=== PATIENT | male | born 1975 | race Caucasian/White ===

== ENCOUNTER 2017-07-01 15:17 | Emergency (ER) | payer BC ==
[2017-07-01] MEDS ORDERED: Lidocaine 1% with EPINEPHrine 1:100,000 50 ML MDV INFILT ONE (15:38)
[2017-07-01] MEDS ORDERED: Bacitracin Oint 1 GM U/D Packet TOP ONE (15:38)
--- NOTE | 2017-07-01 15:43 | EDM.PDOC ---
ED HPI GENERAL MEDICAL PROBLEM - General Chief Complaint: Laceration Stated Complaint: FELL, LACERATION TO LT KNEE BY CHAINSAW Time Seen by Provider: 07/01/17 15:39 Source of Information: Reports: Patient History Limitations: Reports: No Limitations - History of Present Illness INITIAL COMMENTS - FREE TEXT/NARRATIVE: Erasmo presents today with complaints of falling onto his chainsaw with his left knee. Chain saw was not running and he developed a laceration to the left knee. He denies other trauma or severe pain. Last tetanus 2011. Location: Reports: Lower Extremity, Left Quality: Reports: Dull Severity: Mild Improves with: Reports: Rest Worsens with: Reports: Movement Left Knee Pain Score (Numeric/FACES): 2 - Related Data Allergies Allergy/AdvReac Type Severity Reaction Status Date / Time No Known Allergies Allergy Verified 07/01/17 15:29 Home Meds: Home Meds Lisinopril [Lisinopril] 20 mg PO DAILY 12/01/13 [History] traZODone 50 mg PO BEDTIME 12/01/13 [History] Carisoprodol [Soma] 350 mg PO QID 08/19/14 [History] Baclofen [Baclofen] 10 mg PO Q12H 09/12/15 [History] Diazepam [Valium] 5 mg PO BEDTIME 01/18/16 [History] Terbinafine [LamISIL] 1 tab PO DAILY 07/01/17 [History] Past Medical History Cardiovascular History: Reports: Hypertension Gastrointestinal History: Reports: GERD, Inflammatory Bowel Disease Musculoskeletal History: Reports: Fracture Other Musculoskeletal History: Distonia Neurological History: Reports: Other (See Below) 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 Psychiatric History: Reports: Anxiety - Infectious Disease History Infectious Disease History: Reports: Chicken Pox - Past Surgical History Musculoskeletal Surgical History: Reports: Shoulder Surgery, Other (See Below) Other Musculoskeletal Surgeries/Procedures:: rotator x 2 on left and x2 on right. bicep rupture repair. Social & Family History - Tobacco Use Smoking Status *Q: Never Smoker Years of Tobacco use: 20 Second Hand Smoke Exposure: No - Caffeine Use Caffeine Use: Reports: Coffee - Alcohol Use Days Per Week of Alcohol Use: 3 Number of Drinks Per Day: 2 Total Drinks Per Week: 6 - Recreational Drug Use Recreational Drug Use: No ED ROS GENERAL - Review of Systems Review Of Systems: See Below Constitutional: Denies: Fever, Chills, Malaise, Weakness Cardiovascular: Denies: Chest Pain, Dyspnea on Exertion, Lightheadedness, Palpitations, PND, Syncope GI/Abdominal: Denies: Nausea, Vomiting Musculoskeletal: Reports: Leg Pain, Other (laceration to left knee) Skin: Reports: Wound, Other (Laceration to left knee) Neurological: Denies: Numbness, Tingling, Difficulty Walking, Weakness, Gait Disturbance Psychiatric: Reports: No Symptoms Hematologic/Lymphatic: Reports: No Symptoms Immunologic: Reports: No Symptoms ED EXAM, SKIN/RASH Exam: See Below Text/Narrative:: Erasmo is an alert, oriented and pleasant 42 year old male presenting today for laceration to left knee from falling on [employer] chain while it was not running. He denies numbness, tingling. He has full sensation, ROM intact to left leg. Bleeding controlled. Exam Limited By: No Limitations General Appearance: Alert, WD/WN, No Apparent Distress Eye Exam: Bilateral Eye: EOMI, PERRL Head: Atraumatic, Normocephalic Neck: Normal Inspection, Supple, Non-Tender, Full Range of Motion. No: Lymphadenopathy (R), Lymphadenopathy (L) Respiratory/Chest: No Respiratory Distress, Lungs Clear, Normal Breath Sounds, No Accessory Muscle Use, Chest Non-Tender Cardiovascular: Normal Peripheral Pulses, Regular Rate, Rhythm, No Edema, No Murmur, No Rub Peripheral Pulses: 2+: Dorsalis Pedis (L), Dorsalis Pedis (R) Back Exam: Normal Inspection, Full Range of Motion. No: CVA Tenderness (R), CVA Tenderness (L) Extremities: Normal Range of Motion, No Pedal Edema, Normal Capillary Refill, Other (Laceration to left kne) Neurological: Alert, Oriented, CN II-XII Intact, Normal Cognition, Normal Gait, Normal Reflexes, No Motor/Sensory Deficits Psychiatric: Normal Affect, Normal Mood Skin: Warm, Dry, Normal Color, No Rash, Other (Laceration to left knee 4cm in length, jagged. ) Lymphatic: No Adenopathy ED SKIN PROCEDURES - Laceration/Wound Repair Left Knee Lac/Wound length In cm: 4 Appearance: Irregular, Mildly Contaminated Distal NVT: Neuro & Vascular Intact, No Tendon Injury Anesthetic Type: Local Local Anesthesia - Lidocaine (Xylocaine): 1% with EPI Local Anesthetic Volume: 5cc Skin Prep: Chlorhexidine (Hibiciens), Saline Saline Irrigation (cc's): 30 Exploration/Debridement/Repair: Wound Explored, In a Bloodless Field, No Foreign Material Found, Wound Margins Revised Closed with: Sutures Suture Size: 3-0 # of Sutures: 7 Suture Type: Nylon, Interrupted Course - Vital Signs Last Recorded V/S: Last Vital Signs Temp 36.2 C 07/01/17 15:34 Pulse 84 07/01/17 15:34 Resp 18 07/01/17 15:34 BP 136/80 07/01/17 15:34 Pulse Ox 98 07/01/17 15:34 - Orders/Labs/Meds Meds: Medications Discontinued Medications Generic Name Dose Route Start Last Admin Trade Name Vladimir PRN Reason Stop Dose Admin Bacitracin 1 dose 07/01/17 15:38 07/01/17 15:44 Bacitracin Oint 1 Gm TOP 07/01/17 15:39 1 dose ONETIME ONE Administration Lidocaine/Epinephrine 6 ml 07/01/17 15:38 07/01/17 15:44 Xylocaine 1% With Epinephrine 1:100,000 INFILT 07/01/17 15:39 6 ml ONETIME ONE Administration - Re-Assessments/Exams Free Text/Narrative Re-Assessment/Exam: 07/01/17 16:20 Suture repair completed, bacitracin applied. Patient tolerated well. Departure - Departure Time of Disposition: 16:14 Disposition: Home, Self-Care 01 Condition: Good Clinical Impression: Laceration of left knee without complication - Discharge Information Instructions: Laceration Care, Adult, [id number], Stitches, [place], or Adhesive Wound Closure, [id number] Referrals: Dioni Ortega MD [Primary Care Provider] - Forms: ED Department Discharge Additional Instructions: You have suffered laceration to the left knee. Keep the area clean and dry. You can use bacitracin ointment, a thin layer twice per day for 3 days. Return to your primary provider or come back to the emergency room in 10 days for suture removal. Return for worsening, issues or concerns. - Assessment/Plan Assessment:: Laceration left knee without complications Plan: Laceration to the left knee. Keep the area clean and dry. You can use bacitracin ointment, a thin layer twice per day for 3 days. Acetaminophen or ibuprofen for pain as needed. Education provided on wound care, and physical activity. Patient questions answered. He is in agreement with plan. Return to your primary provider or come back to the emergency room in 10 days for suture removal. Return for worsening, issues or concerns.
[2017-07-01 15:54] VITALS: BP 136/80
== END 2017-07-01 16:23 | disposition home or self-care (01) ==
LOC: JP.ED 15:17
DX: S81.012A Laceration without foreign body, left knee, initial encounter (principal); W01.198A Fall on same level from slipping, tripping and stumbling with subsequent striking against other object, initial encounter; I10 Essential (primary) hypertension
CPT/HCPCS: 12002; 99283-25

== ENCOUNTER 2018-10-28 15:53 | Emergency (ER) | payer BC, OTHER ==
[2018-10-28] MEDS ORDERED: Aspirin 81 MG Tab.Chew PO ONE (16:04)
--- NOTE | 2018-10-28 16:07 | EDM.PDOC ---
ED HPI GENERAL MEDICAL PROBLEM - General Chief Complaint: Chest Pain Stated Complaint: CHEST PAINS Time Seen by Provider: 10/28/18 16:07 Source of Information: Reports: Patient, Old Records, Provider, RN History Limitations: Reports: No Limitations - History of Present Illness INITIAL COMMENTS - FREE TEXT/NARRATIVE: 43 yo male was seen in the clinic for chest pain today. An EKG there was normal , but they wanted him evaluated in the ER. Has no hx of CAD. Sx's present since this morning. Not worse with activity or eating. No calf pain or pleuritic chest pain. No hx of the same. Is under a lot of stress at work lately. No FHx of CAD. Is a non-smoker. No DM or hx of HTN. Lipids somewhat elevated, but not on treatment. Onset: Today Onset Date: 10/28/18 Onset Time: 09:00 Duration: Hour(s):, Constant Location: Reports: Chest Quality: Reports: Pressure Severity: Mild Improves with: Reports: None Worsens with: Reports: None Context: Reports: Other (See HPI) Associated Symptoms: Reports: Chest Pain, Shortness of Breath (Feels hard to breath). 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 (see below) (none) Chest Pain Score (Numeric/FACES): 0 Lower Jaw Pain Score (Numeric/FACES): 1 Left Shoulder Pain Score (Numeric/FACES): 1 - Related Data Allergies Allergy/AdvReac Type Severity Reaction Status Date / Time No Known Allergies Allergy Verified 10/28/18 16:01 Home Meds: Home Meds Lisinopril 20 mg PO DAILY 12/01/13 [History] traZODone 50 mg PO BEDTIME 12/01/13 [History] Carisoprodol [Soma] 350 mg PO QID 08/19/14 [History] Baclofen 10 mg PO Q12H 09/12/15 [History] Diazepam [Valium] 5 mg PO BEDTIME 01/18/16 [History] Past Medical History Cardiovascular History: Reports: Hypertension Gastrointestinal History: Reports: GERD, Inflammatory Bowel Disease Musculoskeletal History: Reports: Fracture Other Musculoskeletal History: Distonia Neurological History: Reports: Other (See Below) 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 Psychiatric History: Reports: Anxiety - Infectious Disease History Infectious Disease History: Reports: Chicken Pox - Past Surgical History Musculoskeletal Surgical History: Reports: Shoulder Surgery, Other (See Below) Other Musculoskeletal Surgeries/Procedures:: rotator x 2 on left and x2 on right. bicep rupture repair. Social & Family History - Caffeine Use Caffeine Use: Reports: Coffee ED ROS GENERAL - Review of Systems Review Of Systems: See Below Constitutional: Reports: No Symptoms HEENT: Reports: No Symptoms Respiratory: Reports: Shortness of Breath (very mild). Denies: Wheezing, Pleuritic Chest Pain, Cough, Sputum, Hemoptysis Cardiovascular: Reports: Chest Pain. Denies: Dyspnea on Exertion, Edema, Lightheadedness, Orthopnea, Palpitations, PND, Syncope Endocrine: Reports: No Symptoms GI/Abdominal: Reports: Anorexia. Denies: Abdominal Pain, Black Stool, Bloody Stool, Constipation, Diarrhea, Distension, Flatus, Hematemesis, Hematochezia, Nausea, Vomiting : Reports: No Symptoms Musculoskeletal: Reports: No Symptoms Skin: Reports: No Symptoms Neurological: Reports: No Symptoms ED EXAM, GENERAL - Physical Exam Exam: See Below Exam Limited By: No Limitations General Appearance: Alert, WD/WN, No Apparent Distress Eye Exam: Bilateral Eye: Normal Inspection Ears: Normal External Exam, Normal Canal, Hearing Grossly Normal, Normal TMs Ear Exam: Bilateral Ear: Auricle Normal, Canal Normal, TM normal Nose: Normal Inspection, No Blood Throat/Mouth: Normal Inspection, Normal Lips, Normal Oropharynx, Normal Voice, No Airway Compromise Head: Atraumatic, Normocephalic Neck: Normal Inspection Respiratory/Chest: No Respiratory Distress, Lungs Clear, Normal Breath Sounds, No Accessory Muscle Use, Chest Non-Tender Cardiovascular: Regular Rate, Rhythm, No Edema GI/Abdominal: Normal Bowel Sounds, Soft, Non-Tender, No Distention Back Exam: Normal Inspection. No: CVA Tenderness (R), CVA Tenderness (L) Extremities: Normal Inspection, Normal Range of Motion, Non-Tender, No Pedal Edema Neurological: Alert, Oriented, CN II-XII Intact, Normal Cognition, No Motor/ Sensory Deficits Psychiatric: Normal Affect, Normal Mood Skin Exam: Warm, Dry, Intact, Normal Color, No Rash EKG INTERPRETATION EKG Date: 10/28/18 Time: 15:45 Rhythm: NSR Rate (Beats/Min): 75 Norman: Normal P-Wave: Present QRS: Normal ST-T: Normal QT: Normal Comparison: NA - No Prior EKG Course - Vital Signs Last Recorded V/S: Last Vital Signs Temp 36.4 C 10/28/18 16:03 Pulse 65 10/28/18 17:44 Resp 16 10/28/18 17:19 BP 129/73 10/28/18 17:44 Pulse Ox 98 10/28/18 17:44 - Orders/Labs/Meds Orders: Active Orders 24 hr Category Date Time Status Cardiac Monitoring [RC] .As Directed Care 10/28/18 15:54 Active Nitroglycerin [Nitrostat] Med 10/28/18 16:14 Active 0.4 mg SL Q5M PRN Medication Orders Nitroglycerin (Nitrostat) 0.4 mg SL Q5M PRN PRN Reason: Chest Pain Last Admin: 10/28/18 16:34 Dose: 0.4 mg Admin: 10/28/18 16:18 Dose: 0.4 mg Labs: Laboratory Tests 10/28/18 10/28/18 10/28/18 Range/Units 16:14 16:14 17:15 WBC 7.4 (4.5-11.0) K/uL RBC 4.99 (4.30-5.90) M/uL Hgb 14.5 (12.0-15.0) g/dL Hct 44.1 (40.0-54.0) % MCV 88 (80-98) fL MCH 29 (27-31) pg MCHC 33 (32-36) % Plt Count 313 (150-400) K/uL D-Dimer, Quantitative < 100 (0.0-400.0) ng/mL Sodium 139 L (140-148) mmol/L Potassium 3.6 (3.6-5.2) mmol/L Chloride 102 (100-108) mmol/L Carbon Dioxide 24 (21-32) mmol/L Anion Gap 16.6 H (5.0-14.0) mmol/L BUN 13 (7-18) mg/dL Creatinine 1.1 (0.8-1.3) mg/dL Est Cr Clr Drug Dosing 93.08 mL/min Estimated GFR (MDRD) > 60 (>60) Glucose 93 (74-106) mg/dL Calcium 8.9 (8.5-10.1) mg/dL Troponin I < 0.017 (0.000-0.056) ng/mL Urine Color Urine Appearance Urine pH (4.5-8.0) Ur Specific Nicholson (1.008-1.030) Urine Protein (NEGATIVE) mg/dL Urine Glucose (UA) (NEGATIVE) mg/dL Urine Ketones (NEGATIVE) mg/dL Urine Occult Blood (NEGATIVE) Urine Nitrite (NEGAITVE) Urine Bilirubin (NEGATIVE) Urine Urobilinogen (NORMAL) mg/dL Ur Leukocyte Esterase (NEGATIVE) Urine RBC (0-5) Urine WBC (0-5) Ur Epithelial Cells Amorphous Sediment Urine Bacteria Urine Mucus Urine Other 10/28/18 10/28/18 Range/Units 17:48 18:41 WBC (4.5-11.0) K/uL RBC (4.30-5.90) M/uL Hgb (12.0-15.0) g/dL Hct (40.0-54.0) % MCV (80-98) fL MCH (27-31) pg MCHC (32-36) % Plt Count (150-400) K/uL D-Dimer, Quantitative (0.0-400.0) ng/mL Sodium (140-148) mmol/L Potassium (3.6-5.2) mmol/L Chloride (100-108) mmol/L Carbon Dioxide (21-32) mmol/L Anion Gap (5.0-14.0) mmol/L BUN (7-18) mg/dL Creatinine (0.8-1.3) mg/dL Est Cr Clr Drug Dosing mL/min Estimated GFR (MDRD) (>60) Glucose (74-106) mg/dL Calcium (8.5-10.1) mg/dL Troponin I < 0.017 (0.000-0.056) ng/mL Urine Color Yellow Urine Appearance Clear Urine pH 5.0 (4.5-8.0) Ur Specific Nicholson 1.015 (1.008-1.030) Urine Protein Negative (NEGATIVE) mg/dL Urine Glucose (UA) Normal (NEGATIVE) mg/dL Urine Ketones Negative (NEGATIVE) mg/dL Urine Occult Blood Negative (NEGATIVE) Urine Nitrite Negative (NEGAITVE) Urine Bilirubin Negative (NEGATIVE) Urine Urobilinogen Normal (NORMAL) mg/dL Ur Leukocyte Esterase Negative (NEGATIVE) Urine RBC 0-5 (0-5) Urine WBC 0-5 (0-5) Ur Epithelial Cells Few Amorphous Sediment Few Urine Bacteria Rare Urine Mucus Numerous Urine Other See note Meds: Medications Generic Name Dose Route Start Last Admin Trade Name Freq PRN Reason Stop Dose Admin Nitroglycerin 0.4 mg 10/28/18 16:14 10/28/18 16:34 Nitrostat SL 0.4 mg Q5M PRN Administration Chest Pain Discontinued Medications Generic Name Dose Route Start Last Admin Trade Name Freq PRN Reason Stop Dose Admin Acetaminophen 1,000 mg 10/28/18 18:05 10/28/18 18:24 Tylenol Extra Strength PO 10/28/18 18:06 1,000 mg ONETIME ONE Administration Aspirin 324 mg 10/28/18 16:04 10/28/18 16:17 Aspirin PO 10/28/18 16:05 324 mg ONETIME ONE Administration Al Hydroxide/Mg Hydroxide 15 0 ml 10/28/18 16:47 10/28/18 16:52 ml/ Lidocaine HCl 15 ml PO 10/28/18 16:48 15 ml ONETIME ONE Administration Departure - Departure Time of Disposition: 19:13 Disposition: Home, Self-Care 01 Condition: Fair Clinical Impression: Atypical chest pain Instructions: Exercise Stress Test, [id number], Nonspecific Chest Pain, Easy- to-Read Referrals: Dioni Ortega MD [Primary Care Provider] - Forms: ED Department Discharge Additional Instructions: Take a baby aspirin daily with food until your stress test, if you pass this test you can stop this med. Take acetaminophen up to 1000 mg every 6 hrs as needed. Continue your other medicines as currently. F/U with your provider a couple days after the stress test to go over the results. Return if worse. - My Orders Last 24 Hours: My Active Orders 10/28/18 15:54 Cardiac Monitoring [RC] .As Directed 10/28/18 16:14 Nitroglycerin [Nitrostat] 0.4 mg SL Q5M PRN - Assessment/Plan Last 24 Hours: My Active Orders 10/28/18 15:54 Cardiac Monitoring [RC] .As Directed 10/28/18 16:14 Nitroglycerin [Nitrostat] 0.4 mg SL Q5M PRN
[2018-10-28] MEDS: Nitroglycerin 0.4 MG Tab.SL SL PRN ×2 (16:18→16:34)
[2018-10-28] MEDS ORDERED: Alum Hydrox/Mag Hydrox/Simeth 15 ML, Lidocaine 2% 15 ML PO ONE ×2 (16:47)
[2018-10-28] MEDS ORDERED: Acetaminophen 500 MG Tab PO ONE (18:05)
[2018-10-28 19:29] VITALS: BP 121/77
== END 2018-10-28 19:47 | disposition home or self-care (01) ==
LOC: JP.ED 15:53
DX: R07.89 Other chest pain (principal); Z79.899 Other long term (current) drug therapy
CPT/HCPCS: 36415; 80048; 81001; 84484; 85027; 85379; 99285; A9270

== ENCOUNTER 2019-07-04 19:51 | Emergency (ER) | payer OTHER ==
[2019-07-04 20:14] VITALS: BP 138/79; PULSE 80
[2019-07-04] MEDS ORDERED: Colchicine 0.6 MG Tab PO ONE ×2 (21:04→21:07)
--- NOTE | 2019-07-04 21:12 | EDM.PDOC ---
ED HPI GENERAL MEDICAL PROBLEM - General Chief Complaint: General Stated Complaint: POSSILBE GOUT IN RIGHT TOE/CHEST PRESSURE Time Seen by Provider: 07/04/19 20:54 Source of Information: Reports: Patient, RN Notes Reviewed History Limitations: Reports: No Limitations - History of Present Illness INITIAL COMMENTS - FREE TEXT/NARRATIVE: 44-year-old gentleman presents emergency department today complaint of great toe pain on the right side he does have a history of gout he states this feels like gout but he recently had an angiogram 10 days prior does have some bruising around the groin area with some discomfort in the knee which she is not had with any gout attacks. Has been using indomethacin at home without relief Right Toe-Hailux Pain Score (Numeric/FACES): 5 - Related Data Allergies Allergy/AdvReac Type Severity Reaction Status Date / Time bee venom protein (honey bee) Allergy Anaphylactic Verified 07/04/19 20:22 Shock Home Meds: Home Meds traZODone 50 mg PO BEDTIME 12/01/13 [History] Carisoprodol [Soma] 350 mg PO QID 08/19/14 [History] Baclofen 10 mg PO Q12H 09/12/15 [History] Diazepam [Valium] 5 mg PO BEDTIME 01/18/16 [History] Aspirin [Halfprin] 81 mg PO DAILY 07/04/19 [History] Diltiazem [Diltiazem XR] 180 mg PO BEDTIME 07/04/19 [History] EPINEPHrine [Epipen] 0.3 mg IM ASDIRECTED PRN 07/04/19 [History] Indomethacin [Indocin] 50 mg PO ASDIRECTED PRN 07/04/19 [History] Isosorbide Mononitrate [Isosorbide Mononitrate ER] 30 mg PO DAILY 07/04/19 [ History] Nitroglycerin [Nitrostat] 0.4 mg SL ASDIRECTED PRN 07/04/19 [History] atorvaSTATin [Lipitor] 40 mg PO BEDTIME 07/04/19 [History] Past Medical History HEENT History: Reports: Allergic Rhinitis Cardiovascular History: Reports: Arrhythmia, CAD, High Cholesterol, Hypertension Gastrointestinal History: Reports: GERD, Inflammatory Bowel Disease Musculoskeletal History: Reports: Fracture, Gout Other Musculoskeletal History: Distonia Neurological History: Reports: Other (See Below) 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 Psychiatric History: Reports: Anxiety Dermatologic History: Reports: None, Other (See Below) Other Dermatologic History: rash on underarms - Infectious Disease History Infectious Disease History: Reports: Chicken Pox - Past Surgical History Head Surgeries/Procedures: Reports: None Cardiovascular Surgical History: Reports: Other (See Below) Other Cardiovascular Surgeries/Procedures: angiogram Respiratory Surgical History: Reports: None GI Surgical History: Reports: Colonoscopy Musculoskeletal Surgical History: Reports: Shoulder Surgery, Other (See Below) Other Musculoskeletal Surgeries/Procedures:: rotator x 2 on left and x2 on right. bicep rupture repair. Dermatological Surgical History: Reports: Skin Biopsy Social & Family History - Tobacco Use Smoking Status *Q: Never Smoker - Caffeine Use Caffeine Use: Reports: Coffee - Recreational Drug Use Recreational Drug Use: No ED ROS GENERAL - Review of Systems Review Of Systems: See Below Constitutional: Reports: No Symptoms Respiratory: Reports: No Symptoms Cardiovascular: Reports: No Symptoms Musculoskeletal: Reports: Foot Pain (Great toe right side) ED EXAM, GENERAL - Physical Exam Exam: See Below Free Text/Narrative:: Examination of the toe it is red and very tender to the touch this is the great toe on the right side, pedal pulse is +2 and unappreciated any significant pain in the knee he does have some bruising and ecchymosis appreciated in the groin area on the left side Exam Limited By: No Limitations General Appearance: Alert, WD/WN, No Apparent Distress Respiratory/Chest: No Respiratory Distress Course - Vital Signs Last Recorded V/S: Last Vital Signs Temp 98.2 F 07/04/19 20:30 Pulse 80 07/04/19 20:30 Resp 16 07/04/19 20:30 BP 138/79 07/04/19 20:30 Pulse Ox 97 07/04/19 20:30 - Orders/Labs/Meds Meds: Medications Discontinued Medications Generic Name Dose Route Start Last Admin Trade Name Freq PRN Reason Stop Dose Admin Colchicine 1.2 mg 07/04/19 21:04 Colcrys PO 07/04/19 21:05 ONETIME ONE Colchicine 0.6 mg 07/04/19 21:07 Colcrys PO 07/04/19 21:08 ONETIME ONE Departure - Departure Time of Disposition: 21:15 Disposition: Home, Self-Care 01 Condition: Fair Clinical Impression: Gout attack Qualifiers: Gout site: foot Gout etiology: other secondary cause Laterality: right Qualified Code(s): M10.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 - Assessment/Plan Plan: Assessment Acuity = acute Site and laterality = gout great toe right foot Etiology = probable uric acid Manifestations = none Location of injury = Home Lab values = none Plan Elected to treat empirically with colchicine did talk to him about the interaction of colchicine and diazepam he will not repeat his cold seen for 3 days,, he declined any further evaluation with blood work or imaging studies at this time follow-up primary care 3-5 days if no improvement This note was dictated using [employer] voice recognition software please call with any questions on syntax or grammar.
== END 2019-07-04 21:29 | disposition home or self-care (01) ==
LOC: JP.ED 19:51
DX: M10.471 Other secondary gout, right ankle and foot (principal); E78.5 Hyperlipidemia, unspecified; I10 Essential (primary) hypertension; F41.9 Anxiety disorder, unspecified; Z79.82 Long term (current) use of aspirin; Z91.030 Bee allergy status
CPT/HCPCS: 99283; A9270

== ENCOUNTER 2019-09-15 11:35 | Inpatient (IN) | payer OTHER ==
--- NOTE | 2019-09-15 11:53 | EDM.PDOC ---
ED HPI GENERAL MEDICAL PROBLEM - General Chief Complaint: Gastrointestinal Problem Stated Complaint: BLOOD LOSS THROUGH STOOLS Time Seen by Provider: 09/15/19 11:51 Source of Information: Reports: Patient History Limitations: Reports: No Limitations - History of Present Illness INITIAL COMMENTS - FREE TEXT/NARRATIVE: pt had 8-10 bloody stools this am. this was maroon in color. Onset: Today, Sudden Duration: Hour(s):, Other ( some discomfort in the left lower abdoman. ) Location: Reports: Abdomen Associated Symptoms: Reports: Other (diarrhea, dark blood) - Related Data Allergies Allergy/AdvReac Type Severity Reaction Status Date / Time bee venom protein (honey bee) Allergy Severe Anaphylactic Verified 09/15/19 11: 47 Shock Home Meds: Home Meds traZODone 50 mg PO BEDTIME 12/01/13 [History] carisoprodoL [Soma] 350 mg PO QID 08/19/14 [History] Baclofen 10 mg PO Q12H 09/12/15 [History] Diazepam [Valium] 5 mg PO BEDTIME 01/18/16 [History] Aspirin [Halfprin] 81 mg PO DAILY 07/04/19 [History] Diltiazem [Dilacor XR] 240 mg PO BEDTIME 07/04/19 [History] EPINEPHrine [Epipen] 0.3 mg IM ASDIRECTED PRN 07/04/19 [History] Indomethacin [Indocin] 50 mg PO ASDIRECTED PRN 07/04/19 [History] Isosorbide Mononitrate [Isosorbide Mononitrate ER] 30 mg PO DAILY 07/04/19 [ History] Nitroglycerin [Nitrostat] 0.4 mg SL ASDIRECTED PRN 07/04/19 [History] Rosuvastatin [Crestor] 20 mg PO BEDTIME 09/15/19 [History] Past Medical History HEENT History: Reports: Allergic Rhinitis Cardiovascular History: Reports: Arrhythmia, CAD, High Cholesterol, Hypertension Gastrointestinal History: Reports: GERD, Inflammatory Bowel Disease Musculoskeletal History: Reports: Fracture, Gout Other Musculoskeletal History: Distonia Neurological History: Reports: Other (See Below) 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 Psychiatric History: Reports: Anxiety Dermatologic History: Reports: None, Other (See Below) Other Dermatologic History: rash on underarms - Infectious Disease History Infectious Disease History: Reports: Chicken Pox - Past Surgical History Head Surgeries/Procedures: Reports: None Cardiovascular Surgical History: Reports: Other (See Below) Other Cardiovascular Surgeries/Procedures: angiogram Respiratory Surgical History: Reports: None GI Surgical History: Reports: Colonoscopy Musculoskeletal Surgical History: Reports: Shoulder Surgery, Other (See Below) Other Musculoskeletal Surgeries/Procedures:: rotator x 2 on left and x2 on right. bicep rupture repair. Dermatological Surgical History: Reports: Skin Biopsy Social & Family History - Caffeine Use Caffeine Use: Reports: Coffee ED ROS GENERAL - Review of Systems Review Of Systems: See Below Constitutional: Reports: No Symptoms HEENT: Reports: No Symptoms Respiratory: Reports: No Symptoms Cardiovascular: Reports: No Symptoms Endocrine: Reports: No Symptoms GI/Abdominal: Reports: Other (pt has had 8-10 maroon colored stools this am. He has had bleeding in the past but not this much. ) : Reports: No Symptoms Musculoskeletal: Reports: No Symptoms Skin: Reports: No Symptoms Neurological: Reports: No Symptoms Psychiatric: Reports: No Symptoms ED EXAM, GI/ABD - Physical Exam Exam: See Below Text/Narrative:: pt arrived with a history of 8-10 bloody stools today. He states he always has some bleeding but not this volume. Exam Limited By: No Limitations General Appearance: Alert, Anxious Ears: Normal TMs Nose: Normal Inspection Throat/Mouth: Normal Inspection Head: Atraumatic Neck: Normal Inspection Respiratory/Chest: No Respiratory Distress Cardiovascular: Regular Rate, Rhythm GI/Abdominal Exam: Soft, Non-Tender (Male) Exam: Deferred Rectal (Males) Exam: Other (there is a small amount of stool mixed with blood. ) Back Exam: Normal Inspection Extremities: Normal Inspection Neurological: Alert, Oriented, Normal Cognition Course - Vital Signs Last Recorded V/S: Last Vital Signs Temp 36.3 C 09/16/19 08:50 Pulse 71 09/16/19 09:30 Resp 18 09/16/19 09:30 BP 133/79 09/16/19 09:30 Pulse Ox 99 09/16/19 09:30 - Orders/Labs/Meds Labs: Laboratory Tests 09/15/19 09/15/19 09/15/19 Range/Units 11:52 11:52 12:35 WBC 7.9 (4.5-11.0) K/uL RBC 4.75 (4.30-5.90) M/uL Hgb 14.0 (12.0-15.0) g/dL Hct 43.7 (40.0-54.0) % MCV 92 (80-98) fL MCH 30 (27-31) pg MCHC 32 (32-36) % Plt Count 261 (150-400) K/uL Neut % (Auto) 56 (36-66) % Lymph % (Auto) 31 (24-44) % [place] % (Auto) 11 H (2-6) % Eos % (Auto) 2 (2-4) % Baso % (Auto) 1 (0-1) % APTT (27.0-36.0) sec Sodium 139 L (140-148) mmol/L Potassium 3.8 (3.6-5.2) mmol/L Chloride 104 (100-108) mmol/L Carbon Dioxide 25 (21-32) mmol/L Anion Gap 13.8 (5.0-14.0) mmol/L BUN 12 (7-18) mg/dL Creatinine 1.0 (0.8-1.3) mg/dL Est Cr Clr Drug Dosing 101.31 mL/min Estimated GFR (MDRD) > 60 (>60) Glucose 97 (74-106) mg/dL Calcium 8.6 (8.5-10.1) mg/dL Total Bilirubin 0.3 (0.2-1.0) mg/dL AST 20 (15-37) U/L ALT 36 (12-78) U/L Alkaline Phosphatase 53 (46-116) U/L Total Protein 7.0 (6.4-8.2) g/dL Albumin 3.9 (3.4-5.0) g/dL Globulin 3.1 (2.3-3.5) g/dL Albumin/Globulin Ratio 1.3 (1.2-2.2) Urine Color Yellow (YELLOW) Urine Appearance Clear (CLEAR) Urine pH 5.5 (5.0-8.0) Ur Specific [place] 1.015 (1.008-1.030) Urine Protein Negative (NEGATIVE) mg/dL Urine Glucose (UA) Negative (NEGATIVE) mg/dL Urine Ketones Negative (NEGATIVE) mg/dL Urine Occult Blood Negative (NEGATIVE) Urine Nitrite Negative (NEGATIVE) Urine Bilirubin Negative (NEGATIVE) Urine Urobilinogen 0.2 (0.2-1.0) EU/dL Ur Leukocyte Esterase Negative (NEGATIVE) Urine RBC Not seen (0-5) Urine WBC Not seen (0-5) Ur Epithelial Cells Not seen Amorphous Sediment Not seen Urine Bacteria Not seen Urine Mucus Not seen 09/15/19 Range/Units 12:59 WBC (4.5-11.0) K/uL RBC (4.30-5.90) M/uL Hgb (12.0-15.0) g/dL Hct (40.0-54.0) % MCV (80-98) fL MCH (27-31) pg MCHC (32-36) % Plt Count (150-400) K/uL Neut % (Auto) (36-66) % Lymph % (Auto) (24-44) % [place] % (Auto) (2-6) % Eos % (Auto) (2-4) % Baso % (Auto) (0-1) % APTT 24.0 L (27.0-36.0) sec Sodium (140-148) mmol/L Potassium (3.6-5.2) mmol/L Chloride (100-108) mmol/L Carbon Dioxide (21-32) mmol/L Anion Gap (5.0-14.0) mmol/L BUN (7-18) mg/dL Creatinine (0.8-1.3) mg/dL Est Cr Clr Drug Dosing mL/min Estimated GFR (MDRD) (>60) Glucose (74-106) mg/dL Calcium (8.5-10.1) mg/dL Total Bilirubin (0.2-1.0) mg/dL AST (15-37) U/L ALT (12-78) U/L Alkaline Phosphatase (46-116) U/L Total Protein (6.4-8.2) g/dL Albumin (3.4-5.0) g/dL Globulin (2.3-3.5) g/dL Albumin/Globulin Ratio (1.2-2.2) Urine Color (YELLOW) Urine Appearance (CLEAR) Urine pH (5.0-8.0) Ur Specific [place] (1.008-1.030) Urine Protein (NEGATIVE) mg/dL Urine Glucose (UA) (NEGATIVE) mg/dL Urine Ketones (NEGATIVE) mg/dL Urine Occult Blood (NEGATIVE) Urine Nitrite (NEGATIVE) Urine Bilirubin (NEGATIVE) Urine Urobilinogen (0.2-1.0) EU/dL Ur Leukocyte Esterase (NEGATIVE) Urine RBC (0-5) Urine WBC (0-5) Ur Epithelial Cells Amorphous Sediment Urine Bacteria Urine Mucus Meds: Medications Discontinued Medications Generic Name Dose Route Start Last Admin Trade Name Freq PRN Reason Stop Dose Admin Acetaminophen 650 mg 09/15/19 15:47 Tylenol PO Q4H PRN Pain (Mild 1-3)/fever Baclofen 10 mg 09/15/19 20:00 09/16/19 09:23 Lioresal PO 10 mg Q12H JOYCE Administration Bisacodyl 10 mg 09/15/19 16:00 09/15/19 16:59 Dulcolax PO 09/15/19 16:01 10 mg ONETIME ONE Administration Bisacodyl 10 mg 09/15/19 20:00 09/15/19 21:10 Dulcolax PO 09/15/19 20:01 10 mg ONETIME ONE Administration Cyclobenzaprine HCl 10 mg 09/15/19 21:00 09/16/19 09:23 Flexeril PO 10 mg TID JOYCE Administration Diazepam 5 mg 09/15/19 21:00 09/15/19 21:14 Valium. PO 5 mg BEDTIME JOYCE Administration Diltiazem HCl 240 mg 09/15/19 21:00 09/15/19 21:11 Cardizem Cd PO 240 mg BEDTIME JOYCE Administration Fentanyl Confirm 09/16/19 07:06 Sublimaze Administered 09/16/19 07:07 Dose 100 mcg .ROUTE .STK-MED ONE Sodium Chloride 1,000 mls @ 999 mls/hr 09/15/19 12:00 09/15/19 13:17 Normal Saline IV 999 mls/hr ASDIRECTED JOYCE Administration Sodium Chloride 80 mls @ 3.5 mls/sec 09/15/19 13:45 09/15/19 13:42 Normal Saline IV 3.5 mls/sec ASDIRECTED JOYCE Administration Sodium Chloride 1,000 mls @ 125 mls/hr 09/15/19 15:47 09/16/19 07:04 Normal Saline IV 125 mls/hr ASDIRECTED JOYCE Administration Influenza Virus Vaccine 60 mcg 09/17/19 10:00 Fluzone Quad [id number] Syringe IM 09/17/19 10:01 .ONCE ONE Iopamidol 132 ml 09/15/19 13:36 09/15/19 13:42 Isovue-300 (61%) IV 09/15/19 13:37 132 ml ASDIRECTED ONE Administration Isosorbide Mononitrate 30 mg 09/16/19 09:00 09/16/19 09:24 Imdur PO 30 mg DAILY JOYCE Administration Midazolam HCl Confirm 09/16/19 07:06 Versed 1 Mg/Ml Administered 09/16/19 07:07 Dose 2 mg .ROUTE .STK-MED ONE Ondansetron HCl 4 mg 09/15/19 15:47 Zofran IV Q4H PRN Nausea/Vomiting Oxycodone HCl 5 mg 09/15/19 15:47 Oxycodone PO Q4H PRN Pain (moderate 4-6) Pantoprazole Sodium 40 mg 09/15/19 16:30 09/16/19 05:24 Protonix Iv IV 40 mg Q12H JOYCE Administration Polyethylene Glycol 238 gm 09/15/19 17:00 09/15/19 17:46 Miralax PO 09/15/19 17:01 238 gm ONETIME ONE Administration Propofol Confirm 09/16/19 07:06 Diprivan 20 Ml Administered 09/16/19 07:07 Dose 200 mg .ROUTE .STK-MED ONE Rosuvastatin Calcium 20 mg 09/15/19 21:00 09/15/19 21:09 Crestor PO 20 mg BEDTIME JOYCE Administration Sodium Chloride 10 ml 09/15/19 15:47 Saline Flush FLUSH ASDIRECTED PRN Keep Vein Open Trazodone HCl 50 mg 09/15/19 21:00 09/15/19 21:11 Trazodone PO 50 mg BEDTIME JOYCE Administration - Re-Assessments/Exams Free Text/Narrative Re-Assessment/Exam: 09/20/19 11:25 pt did have a normal hg. He did have one stool that was almost all dark blood. Departure - Departure Time of Disposition: 16:25 Disposition: Admitted As Inpatient 64 Condition: Fair Clinical Impression: Lower GI bleeding - Discharge Information Sepsis Event Note - Evaluation Sepsis Screening Result: No Definite Risk - Focused Exam Date Exam was Performed: 09/20/19 Time Exam was Performed: 11:27
[2019-09-15] MEDS: Sodium Chloride 0.9% 1,000 ML IV SCH ×4 (12:17→23:17)
[2019-09-15] MEDS ORDERED: Iopamidol 612 MG/ML 200 ML Bottle IV ONE (13:36)
[2019-09-15] MEDS ORDERED: Sodium Chloride 0.9% 80 ML IV SCH (13:45)
--- NOTE | 2019-09-15 14:01 | PCM.HP.2 ---
H&P History of Present Illness - General Date of Service: 09/15/19 Admit Problem/Dx: Admission Diagnosis/Problem Admission Diagnosis/Problem Bleeding Source of Information: Patient, Provider, RN Notes Reviewed History Limitations: Reports: No Limitations - History of Present Illness Initial Comments - Free Text/Narative: Mr. Zimmerman is a 44-year-old gentleman who was admitted through the emergency department with hematochezia secondary to a lower GI bleed. He has had a history of intermittent lower GI bleeds with previous evaluation, no specific etiology identified. Recently he has had blood in the stool on almost a daily basis over the past several days. Today he had several bloody bowel movements and presented to the emergency department for further evaluation. Hemoglobin is 14 and he has been hemodynamically stable. The skin of the abdomen shows evidence of a stricture in the sigmoid colon, no evidence of mass. - Related Data Allergies/Adverse Reactions: Allergies Allergy/AdvReac Type Severity Reaction Status Date / Time bee venom protein (honey bee) Allergy Severe Anaphylactic Verified 09/15/19 11: 47 Shock Home Medications: Home Meds traZODone 50 mg PO BEDTIME 12/01/13 [History] carisoprodoL [Soma] 350 mg PO QID 08/19/14 [History] Baclofen 10 mg PO Q12H 09/12/15 [History] Diazepam [Valium] 5 mg PO BEDTIME 01/18/16 [History] Aspirin [Halfprin] 81 mg PO DAILY 07/04/19 [History] Diltiazem [Diltiazem XR] 240 mg PO BEDTIME 07/04/19 [History] EPINEPHrine [Epipen] 0.3 mg IM ASDIRECTED PRN 07/04/19 [History] Indomethacin [Indocin] 50 mg PO ASDIRECTED PRN 07/04/19 [History] Isosorbide Mononitrate [Isosorbide Mononitrate ER] 30 mg PO DAILY 07/04/19 [ History] Nitroglycerin [Nitrostat] 0.4 mg SL ASDIRECTED PRN 07/04/19 [History] Rosuvastatin [Crestor] 20 mg PO BEDTIME 09/15/19 [History] Past Medical History HEENT History: Reports: Allergic Rhinitis Cardiovascular History: Reports: Arrhythmia, CAD, High Cholesterol, Hypertension Gastrointestinal History: Reports: GERD, Inflammatory Bowel Disease Musculoskeletal History: Reports: Fracture, Gout Other Musculoskeletal History: Distonia Neurological History: Reports: Other (See Below) 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 Psychiatric History: Reports: Anxiety Dermatologic History: Reports: None, Other (See Below) Other Dermatologic History: rash on underarms - Infectious Disease History Infectious Disease History: Reports: Chicken Pox - Past Surgical History Head Surgeries/Procedures: Reports: None Cardiovascular Surgical History: Reports: Other (See Below) Other Cardiovascular Surgeries/Procedures: angiogram Respiratory Surgical History: Reports: None GI Surgical History: Reports: Colonoscopy Musculoskeletal Surgical History: Reports: Shoulder Surgery, Other (See Below) Other Musculoskeletal Surgeries/Procedures:: rotator x 2 on left and x2 on right. bicep rupture repair. Dermatological Surgical History: Reports: Skin Biopsy Social & Family History - Tobacco Use Smoking Status *Q: Never Smoker - Caffeine Use Caffeine Use: Reports: Coffee - Alcohol Use Days Per Week of Alcohol Use: 4 Number of Drinks Per Day: 2 Total Drinks Per Week: 8 Date of Last Drink: 09/13/19 - Recreational Drug Use Recreational Drug Use: No H&P Review of Systems - Review of Systems: Review Of Systems: See Below General: Reports: No Symptoms HEENT: Reports: No Symptoms Pulmonary: Reports: No Symptoms Cardiovascular: Reports: No Symptoms Gastrointestinal: Reports: Abdominal Pain, Diarrhea, Hematochezia. Denies: Constipation, Difficulty Swallowing, Distension, Hematemesis, Nausea, Vomiting Genitourinary: Reports: No Symptoms Musculoskeletal: Reports: No Symptoms Skin: Reports: No Symptoms Psychiatric: Reports: No Symptoms Neurological: Reports: No Symptoms Hematologic/Lymphatic: Reports: No Symptoms Immunologic: Reports: No Symptoms Exam - Exam Exam: See Below - Vital Signs Vital Signs: Last Vital Signs Temp 97 F 09/15/19 13:20 Pulse 62 09/15/19 13:20 Resp 16 09/15/19 13:20 BP 134/77 09/15/19 13:20 Pulse Ox 99 09/15/19 13:20 Weight: 193 lb 3.2 oz - Exam General: Alert, Oriented, Cooperative, Mild Distress HEENT: Conjunctiva Clear, Hearing Intact, Mucosa Moist & [place], Normal Nasal Septum, Posterior Pharynx Clear, Pupils Equal Neck: Supple, Trachea Midline, +2 Carotid Pulse wo Bruit Lungs: Clear to Auscultation Cardiovascular: Regular Rate, Regular Rhythm, Normal S1, Normal S2. No: Systolic Murmur, Diastolic Murmur GI/Abdominal Exam: Soft, Non-Tender, No Organomegaly, No Distention Back Exam: Normal Inspection, Full Range of Motion Extremities: Non-Tender, No Pedal Edema Skin: Warm, Dry, Intact Neurological: Cranial Nerves Intact, Strength Equal Bilateral, Normal Speech, Normal Tone, Sensation Intact. No: Focal Deficit Neuro Extensive - Mental Status: Alert, Oriented x3, Normal Mood/Affect, Normal Cognition, Memory Intact - Patient Data Lab Results Last 24 hrs: Laboratory Results - last 24 hr 09/15/19 09/15/19 09/15/19 Range/Units 11:52 11:52 12:35 WBC 7.9 (4.5-11.0) K/uL RBC 4.75 (4.30-5.90) M/uL Hgb 14.0 (12.0-15.0) g/dL Hct 43.7 (40.0-54.0) % MCV 92 (80-98) fL MCH 30 (27-31) pg MCHC 32 (32-36) % Plt Count 261 (150-400) K/uL Neut % (Auto) 56 (36-66) % Lymph % (Auto) 31 (24-44) % [place] % (Auto) 11 H (2-6) % Eos % (Auto) 2 (2-4) % Baso % (Auto) 1 (0-1) % APTT (27.0-36.0) sec Sodium 139 L (140-148) mmol/L Potassium 3.8 (3.6-5.2) mmol/L Chloride 104 (100-108) mmol/L Carbon Dioxide 25 (21-32) mmol/L Anion Gap 13.8 (5.0-14.0) mmol/L BUN 12 (7-18) mg/dL Creatinine 1.0 (0.8-1.3) mg/dL Est Cr Clr Drug Dosing 101.31 mL/min Estimated GFR (MDRD) > 60 (>60) Glucose 97 (74-106) mg/dL Calcium 8.6 (8.5-10.1) mg/dL Total Bilirubin 0.3 (0.2-1.0) mg/dL AST 20 (15-37) U/L ALT 36 (12-78) U/L Alkaline Phosphatase 53 (46-116) U/L Total Protein 7.0 (6.4-8.2) g/dL Albumin 3.9 (3.4-5.0) g/dL Globulin 3.1 (2.3-3.5) g/dL Albumin/Globulin Ratio 1.3 (1.2-2.2) Urine Color Yellow (YELLOW) Urine Appearance Clear (CLEAR) Urine pH 5.5 (5.0-8.0) Ur Specific [place] 1.015 (1.008-1.030) Urine Protein Negative (NEGATIVE) mg/dL Urine Glucose (UA) Negative (NEGATIVE) mg/dL Urine Ketones Negative (NEGATIVE) mg/dL Urine Occult Blood Negative (NEGATIVE) Urine Nitrite Negative (NEGATIVE) Urine Bilirubin Negative (NEGATIVE) Urine Urobilinogen 0.2 (0.2-1.0) EU/dL Ur Leukocyte Esterase Negative (NEGATIVE) Urine RBC Not seen (0-5) Urine WBC Not seen (0-5) Ur Epithelial Cells Not seen Amorphous Sediment Not seen Urine Bacteria Not seen Urine Mucus Not seen 09/15/19 Range/Units 12:59 WBC (4.5-11.0) K/uL RBC (4.30-5.90) M/uL Hgb (12.0-15.0) g/dL Hct (40.0-54.0) % MCV (80-98) fL MCH (27-31) pg MCHC (32-36) % Plt Count (150-400) K/uL Neut % (Auto) (36-66) % Lymph % (Auto) (24-44) % [place] % (Auto) (2-6) % Eos % (Auto) (2-4) % Baso % (Auto) (0-1) % APTT 24.0 L (27.0-36.0) sec Sodium (140-148) mmol/L Potassium (3.6-5.2) mmol/L Chloride (100-108) mmol/L Carbon Dioxide (21-32) mmol/L Anion Gap (5.0-14.0) mmol/L BUN (7-18) mg/dL Creatinine (0.8-1.3) mg/dL Est Cr Clr Drug Dosing mL/min Estimated GFR (MDRD) (>60) Glucose (74-106) mg/dL Calcium (8.5-10.1) mg/dL Total Bilirubin (0.2-1.0) mg/dL AST (15-37) U/L ALT (12-78) U/L Alkaline Phosphatase (46-116) U/L Total Protein (6.4-8.2) g/dL Albumin (3.4-5.0) g/dL Globulin (2.3-3.5) g/dL Albumin/Globulin Ratio (1.2-2.2) Urine Color (YELLOW) Urine Appearance (CLEAR) Urine pH (5.0-8.0) Ur Specific [place] (1.008-1.030) Urine Protein (NEGATIVE) mg/dL Urine Glucose (UA) (NEGATIVE) mg/dL Urine Ketones (NEGATIVE) mg/dL Urine Occult Blood (NEGATIVE) Urine Nitrite (NEGATIVE) Urine Bilirubin (NEGATIVE) Urine Urobilinogen (0.2-1.0) EU/dL Ur Leukocyte Esterase (NEGATIVE) Urine RBC (0-5) Urine WBC (0-5) Ur Epithelial Cells Amorphous Sediment Urine Bacteria Urine Mucus Result Diagrams: 09/15/19 11:52 09/15/19 11:52 Jluis Results Last 24 hrs: Microbiology 09/15/19 11:51 Stool Occult Blood (JLUIS) - Final Stool / Feces Sepsis Event Note - Evaluation Sepsis Screening Result: No Definite Risk - Focused Exam Vital Signs: Vital Signs Temp Pulse Resp BP Pulse Ox 09/15/19 13:20 97 F 62 16 134/77 99 09/15/19 11:42 97.4 F 86 18 149/96 H 97 Date Exam was Performed: 09/15/19 Time Exam was Performed: 14:48 *Q Meaningful Use (ADM) - VTE *Q VTE Pharmacological Contraindications *Q: Active Hemorrhage - VTE Risk Assess *Q Each Risk Factor Represents 1 Point: Age 41 - 59 years, Obesity ( BMI > 25 kg/m2 ) Total Score 1 Point Risk Factors: 2 Each Risk Factor Represents 2 Points: None Total Score 2 Point Risk Factors: 0 Each Risk Factor Represents 3 Points: None Total Score 3 Point Risk Factors: 0 Each Risk Factor Represents 5 Points: None Total Score 5 Point Risk Factors: 0 Venous Thromboembolism Risk Factor Score *Q: 2 Problem List Initiated/Reviewed/Updated: Yes Orders Last 24hrs: Active Orders 24 hr Category Date Time Status Patient Status Manage Transfer [TRANSFER] Routine ADT 09/15/19 13:51 Active Abdomen Pelvis w Cont [CT] Stat Exams 09/15/19 13:04 Taken Sodium Chloride 0.9% [Normal Saline] 1,000 ml Med 09/15/19 12:00 Active IV ASDIRECTED Sodium Chloride 0.9% [Normal Saline] 80 ml Med 09/15/19 13:45 Active IV ASDIRECTED Resuscitation Status Routine Resus Stat 09/15/19 13:53 Ordered Medication Orders Sodium Chloride (Normal Saline) 1,000 mls @ 999 mls/hr IV ASDIRECTED [facility] Last Admin: 09/15/19 13:17 Dose: 999 mls/hr Infusion: 09/15/19 13:17 Dose: 999 mls/hr Admin: 09/15/19 12:17 Dose: 999 mls/hr Sodium Chloride (Normal Saline) 80 mls @ 3.5 mls/sec IV ASDIRECTED [facility] Last Admin: 09/15/19 13:42 Dose: 3.5 mls/sec Assessment/Plan Comment:: ASSESSMENT AND PLAN GI BLEED-likely lower GI source. Bleeding for the last several days, significantly worse today. Evidence of sigmoid stricture noted on CT scan. -Clear liquid diet, n.p.o. after midnight -Serial hemoglobin levels -Colonoscopy prep -Protonix 40 mg IV twice daily -Consult Dr. Davison for EGD and colonoscopy in a.m. CORONARY ARTERY DISEASE-apparently no atherosclerosis, diagnosed with endothelial disease -Continue outpatient medications MAINTENANCE ISSUES -DVT prophylaxis; SCUDs, hold on anticoagulation because of active bleed Protonix as above -GI prophylaxis; Protonix as above -Rodríguez catheter; not indicated -Nutrition; clear liquid diet, n.p.o. after midnight -Nicotine dependence; not required CODE STATUS-FULL CODE ADMISSION STATUS-patient will be admitted to inpatient status, expect at least a 2 night hospital stay for evaluation and management of problems as outlined above. At the time of this admission I do not reasonably expected evaluation and management of this problem will require more than a 96 hour hospital stay. DISPOSITION-anticipate discharge to home after the hospital stay. PRIMARY CARE PROVIDER-Dr. Ortega - Mortality Measure Prognosis:: Good
--- NOTE | 2019-09-15 14:05 | CT ---
Abdomen Pelvis w Cont CLINICAL HISTORY: Rectal bleeding, left-sided abdominal pain COMPARISON: None. TECHNIQUE: Axial tomographic images are obtained from the dome of the diaphragm to the pubic symphysis without IV contrast enhancement. No oral contrast was used. Auto dosage reduction and iterative reconstruction techniques employed. FINDINGS: The lung bases are clear. The liver is enlarged. The gallbladder has a normal appearance. The spleen has a normal size and shape. The pancreas shows no mass or inflammatory change. The adrenal glands appear normal bilaterally. The kidneys show no mass, stones or hydronephrosis. The aorta has a normal contour. There is no suspicious retroperitoneal adenopathy. There is distention of the distal left colon and proximal sigmoid. There is abrupt narrowing at the junction of the proximal and middle third of the sigmoid over approximately 10 cm segment. There is no thickening. This appears to be stricture formation. The bladder is mildly distended. Moderate prominence of the seminal vesicles. Prostate is mildly enlarged. IMPRESSION: 10 Maitre segment of significant narrowing of the mid sigmoid colon which appears to be stricture formation. No mass is identified. Gaseous distention of the proximal sigmoid. Hepatomegaly
[2019-09-15] MEDS ORDERED: oxyCODONE 5 MG Tab PO PRN (15:47)
[2019-09-15] MEDS ORDERED: Acetaminophen 325 MG Tab PO PRN (15:47)
[2019-09-15] MEDS ORDERED: Sodium Chloride 0.9% 10 ML Syringe FLUSH PRN (15:47)
[2019-09-15] MEDS ORDERED: Ondansetron 4 MG/2 ML SDV IV PRN (15:47)
[2019-09-15] MEDS ORDERED: Non-Formulary Medication 1 Each (Carisoprodol [Soma] 350 MG) PO SCH (16:00)
[2019-09-15] MEDS ORDERED: Bisacodyl 5 MG Tab PO ONE ×2 (16:00→20:00)
[2019-09-15] MEDS: Pantoprazole 40 MG Vial IV SCH (17:00)
[2019-09-15] MEDS ORDERED: Polyethylene Glycol 3350 Powder 238 GM Bot PO ONE (17:00)
[2019-09-15] MEDS ORDERED: Diazepam 5 MG Tab PO SCH (21:00)
[2019-09-15] MEDS ORDERED: Diltiazem 120 MG Cap.CD PO SCH (21:00)
[2019-09-15] MEDS ORDERED: DILTIAZEM 240 MG PO SCH (21:00)
[2019-09-15] MEDS ORDERED: Non-Formulary Medication 1 Each (Rosuvastatin [Crestor] 20 MG) PO SCH (21:00)
[2019-09-15] MEDS ORDERED: Rosuvastatin 10 MG Tab PO SCH (21:00)
[2019-09-15] MEDS ORDERED: traZODone 50 MG Tab PO SCH (21:00)
[2019-09-15] MEDS: Cyclobenzaprine 10 MG Tab PO SCH (21:09)
[2019-09-15] MEDS: Baclofen 10 MG Tab PO SCH (21:10)
[2019-09-16] MEDS: Pantoprazole 40 MG Vial IV SCH (05:24)
[2019-09-16] MEDS: Sodium Chloride 0.9% 1,000 ML IV SCH (07:04)
[2019-09-16] MEDS ORDERED: Propofol 200 MG/20 ML SDV ONE (07:06)
[2019-09-16] MEDS ORDERED: fentaNYL 100 MCG/2 ML SDV ONE (07:06)
[2019-09-16] MEDS ORDERED: Midazolam 1 MG/ML 2 ML SDV ONE (07:06)
[2019-09-16] MEDS ORDERED: Isosorbide Mononitrate 30 MG Tab.ER PO SCH (09:00)
[2019-09-16] MEDS: Baclofen 10 MG Tab PO SCH (09:23)
[2019-09-16] MEDS: Cyclobenzaprine 10 MG Tab PO SCH (09:23)
[2019-09-16 09:34] VITALS: BP 133/79; PULSE 71
--- NOTE | 2019-09-16 09:35 | PCM.DCSUM1 ---
Discharge Summary - Hospital Course Brief History: Mr. Zimmerman is a 44-year-old gentleman who was admitted through the emergency department for further evaluation and management of lower GI bleed. - Discharge Data Discharge Date: 09/16/19 Discharge Disposition: Home, Self-Care 01 Condition: Stable - Referral to Home Health Primary Care Physician: PCP None - Discharge Diagnosis/Problem(s) (1) Bleeding internal hemorrhoids SNOMED Code(s): 27029632 ICD Code: K64.8 - OTHER HEMORRHOIDS Status: Acute Current Visit: Yes (2) Lower GI bleed SNOMED Code(s): 44315957 ICD Code: K92.2 - GASTROINTESTINAL HEMORRHAGE, UNSPECIFIED Status: Acute Current Visit: Yes - Patient Summary/Data Consults: Consultations 09/15/19 15:47 Consult to Physician [CONS] Routine Consulting Provider: Rashad Davison Call Completed to Consulting Physician: Yes Reason for Consult: GI Bleed Hospital Course: Mr. Zimmerman is a 44-year-old gentleman who was admitted through the emergency department with hematochezia secondary to a lower GI bleed. He has had a history of intermittent lower GI bleeds with previous evaluation, no specific etiology identified. Recently he has had blood in the stool on almost a daily basis over the past several days. Today he had several bloody bowel movements and presented to the emergency department for further evaluation. Hemoglobin is 14 and he has been hemodynamically stable. CT scan of the abdomen shows evidence of a stricture in the sigmoid colon, no evidence of mass. On admission he was given IV fluids for hydration. Serial hemoglobin levels were monitored and dropped only slightly during hospitalization despite IV fluids. He had no further evidence of active bleeding noted during his hospital stay. On the morning after admission he was seen and evaluated for Saman, colonoscopy was performed which was entirely normal other than internal hemorrhoids. There was no evidence of stricture or significant abnormality noted in the sigmoid colon. It was felt that the hemorrhoids were the likely source of recent bleeding. He will be discharged home, follow-up appointment scheduled with Dr. Davison next week. Activity will be as tolerated and he will resume his usual diet. - Patient Instructions Diet: Usual Diet as Tolerated Activity: As Tolerated Other/Special Instructions: Please schedule follow-up appointment with Dr. Davison next week. - Discharge Plan *PRESCRIPTION DRUG MONITORING PROGRAM REVIEWED*: Not Applicable *COPY OF PRESCRIPTION DRUG MONITORING REPORT IN PATIENT ALAINA: Not Applicable Home Medications: Home Meds traZODone 50 mg PO BEDTIME 12/01/13 [History] carisoprodoL [Soma] 350 mg PO QID 08/19/14 [History] Baclofen 10 mg PO Q12H 09/12/15 [History] Diazepam [Valium] 5 mg PO BEDTIME 01/18/16 [History] Aspirin [Halfprin] 81 mg PO DAILY 07/04/19 [History] Diltiazem [Dilacor XR] 240 mg PO BEDTIME 07/04/19 [History] EPINEPHrine [Epipen] 0.3 mg IM ASDIRECTED PRN 07/04/19 [History] Indomethacin [Indocin] 50 mg PO ASDIRECTED PRN 07/04/19 [History] Isosorbide Mononitrate [Isosorbide Mononitrate ER] 30 mg PO DAILY 07/04/19 [ History] Nitroglycerin [Nitrostat] 0.4 mg SL ASDIRECTED PRN 07/04/19 [History] Rosuvastatin [Crestor] 20 mg PO BEDTIME 09/15/19 [History] Referrals: Rashad Davison MD [Physician] - - Discharge Summary/Plan Comment DC Time >30 min.: No - Patient Data Vitals - Most Recent: Last Vital Signs Temp 97.3 F 09/16/19 08:50 Pulse 72 09/16/19 08:50 Resp 18 09/16/19 08:50 BP 134/76 09/16/19 09:24 Pulse Ox 98 09/16/19 08:50 Weight - Most Recent: 193 lb 3.057 oz I&O - Last 24 hours: Intake & Output 09/15/19 09/16/19 09/16/19 22:59 06:59 14:59 Intake Total 2731 1822 100 Balance 2731 1822 100 Lab Results - Last 24 hrs: Laboratory Results - last 24 hr 09/15/19 09/15/19 09/15/19 Range/Units 11:52 11:52 12:35 WBC 7.9 (4.5-11.0) K/uL RBC 4.75 (4.30-5.90) M/uL Hgb 14.0 (12.0-15.0) g/dL Hct 43.7 (40.0-54.0) % MCV 92 (80-98) fL MCH 30 (27-31) pg MCHC 32 (32-36) % Plt Count 261 (150-400) K/uL Neut % (Auto) 56 (36-66) % Lymph % (Auto) 31 (24-44) % [place] % (Auto) 11 H (2-6) % Eos % (Auto) 2 (2-4) % Baso % (Auto) 1 (0-1) % APTT (27.0-36.0) sec Sodium 139 L (140-148) mmol/L Potassium 3.8 (3.6-5.2) mmol/L Chloride 104 (100-108) mmol/L Carbon Dioxide 25 (21-32) mmol/L Anion Gap 13.8 (5.0-14.0) mmol/L BUN 12 (7-18) mg/dL Creatinine 1.0 (0.8-1.3) mg/dL Est Cr Clr Drug Dosing 101.31 mL/min Estimated GFR (MDRD) > 60 (>60) Glucose 97 (74-106) mg/dL Calcium 8.6 (8.5-10.1) mg/dL Total Bilirubin 0.3 (0.2-1.0) mg/dL AST 20 (15-37) U/L ALT 36 (12-78) U/L Alkaline Phosphatase 53 (46-116) U/L Total Protein 7.0 (6.4-8.2) g/dL Albumin 3.9 (3.4-5.0) g/dL Globulin 3.1 (2.3-3.5) g/dL Albumin/Globulin Ratio 1.3 (1.2-2.2) Urine Color Yellow (YELLOW) Urine Appearance Clear (CLEAR) Urine pH 5.5 (5.0-8.0) Ur Specific [place] 1.015 (1.008-1.030) Urine Protein Negative (NEGATIVE) mg/dL Urine Glucose (UA) Negative (NEGATIVE) mg/dL Urine Ketones Negative (NEGATIVE) mg/dL Urine Occult Blood Negative (NEGATIVE) Urine Nitrite Negative (NEGATIVE) Urine Bilirubin Negative (NEGATIVE) Urine Urobilinogen 0.2 (0.2-1.0) EU/dL Ur Leukocyte Esterase Negative (NEGATIVE) Urine RBC Not seen (0-5) Urine WBC Not seen (0-5) Ur Epithelial Cells Not seen Amorphous Sediment Not seen Urine Bacteria Not seen Urine Mucus Not seen 09/15/19 09/15/19 09/15/19 Range/Units 12:59 16:48 23:10 WBC (4.5-11.0) K/uL RBC (4.30-5.90) M/uL Hgb 13.8 13.5 (12.0-15.0) g/dL Hct (40.0-54.0) % MCV (80-98) fL MCH (27-31) pg MCHC (32-36) % Plt Count (150-400) K/uL Neut % (Auto) (36-66) % Lymph % (Auto) (24-44) % [place] % (Auto) (2-6) % Eos % (Auto) (2-4) % Baso % (Auto) (0-1) % APTT 24.0 L (27.0-36.0) sec Sodium (140-148) mmol/L Potassium (3.6-5.2) mmol/L Chloride (100-108) mmol/L Carbon Dioxide (21-32) mmol/L Anion Gap (5.0-14.0) mmol/L BUN (7-18) mg/dL Creatinine (0.8-1.3) mg/dL Est Cr Clr Drug Dosing mL/min Estimated GFR (MDRD) (>60) Glucose (74-106) mg/dL Calcium (8.5-10.1) mg/dL Total Bilirubin (0.2-1.0) mg/dL AST (15-37) U/L ALT (12-78) U/L Alkaline Phosphatase (46-116) U/L Total Protein (6.4-8.2) g/dL Albumin (3.4-5.0) g/dL Globulin (2.3-3.5) g/dL Albumin/Globulin Ratio (1.2-2.2) Urine Color (YELLOW) Urine Appearance (CLEAR) Urine pH (5.0-8.0) Ur Specific [place] (1.008-1.030) Urine Protein (NEGATIVE) mg/dL Urine Glucose (UA) (NEGATIVE) mg/dL Urine Ketones (NEGATIVE) mg/dL Urine Occult Blood (NEGATIVE) Urine Nitrite (NEGATIVE) Urine Bilirubin (NEGATIVE) Urine Urobilinogen (0.2-1.0) EU/dL Ur Leukocyte Esterase (NEGATIVE) Urine RBC (0-5) Urine WBC (0-5) Ur Epithelial Cells Amorphous Sediment Urine Bacteria Urine Mucus 09/16/19 09/16/19 Range/Units 05:58 05:58 WBC 7.2 (4.5-11.0) K/uL RBC 4.47 (4.30-5.90) M/uL Hgb 13.2 (12.0-15.0) g/dL Hct 41.7 (40.0-54.0) % MCV 93 (80-98) fL MCH 30 (27-31) pg MCHC 32 (32-36) % Plt Count 240 (150-400) K/uL Neut % (Auto) 53 (36-66) % Lymph % (Auto) 31 (24-44) % [place] % (Auto) 12 H (2-6) % Eos % (Auto) 4 (2-4) % Baso % (Auto) 0 (0-1) % APTT (27.0-36.0) sec Sodium 140 (140-148) mmol/L Potassium 4.1 (3.6-5.2) mmol/L Chloride 108 (100-108) mmol/L Carbon Dioxide 24 (21-32) mmol/L Anion Gap 7.7 (5.0-14.0) mmol/L BUN 7 (7-18) mg/dL Creatinine 1.0 (0.8-1.3) mg/dL Est Cr Clr Drug Dosing TNP mL/min Estimated GFR (MDRD) > 60 (>60) Glucose 97 (74-106) mg/dL Calcium 7.8 L (8.5-10.1) mg/dL Total Bilirubin (0.2-1.0) mg/dL AST (15-37) U/L ALT (12-78) U/L Alkaline Phosphatase (46-116) U/L Total Protein (6.4-8.2) g/dL Albumin (3.4-5.0) g/dL Globulin (2.3-3.5) g/dL Albumin/Globulin Ratio (1.2-2.2) Urine Color (YELLOW) Urine Appearance (CLEAR) Urine pH (5.0-8.0) Ur Specific [place] (1.008-1.030) Urine Protein (NEGATIVE) mg/dL Urine Glucose (UA) (NEGATIVE) mg/dL Urine Ketones (NEGATIVE) mg/dL Urine Occult Blood (NEGATIVE) Urine Nitrite (NEGATIVE) Urine Bilirubin (NEGATIVE) Urine Urobilinogen (0.2-1.0) EU/dL Ur Leukocyte Esterase (NEGATIVE) Urine RBC (0-5) Urine WBC (0-5) Ur Epithelial Cells Amorphous Sediment Urine Bacteria Urine Mucus LEXI Results - Last 24 hrs: Microbiology 09/16/19 09:02 Stool for WBCs - Final Stool / Feces NO WBC SEEN REFERENCE RANGE: NO WBC SEEN 09/15/19 11:51 Stool Occult Blood (LEXI) - Final Stool / Feces Med Orders - Current: Current Medications Acetaminophen (Tylenol) 650 mg PO Q4H PRN PRN Reason: Pain (Mild 1-3)/fever Baclofen (Lioresal) 10 mg PO Q12H [facility] Last Admin: 09/16/19 09:23 Dose: 10 mg Cyclobenzaprine HCl (Flexeril) 10 mg PO TID [facility] Last Admin: 09/16/19 09:23 Dose: 10 mg Diazepam (Valium.) 5 mg PO BEDTIME [facility] Last Admin: 09/15/19 21:14 Dose: 5 mg Diltiazem HCl (Cardizem Cd) 240 mg PO BEDTIME [facility] Last Admin: 09/15/19 21:11 Dose: 240 mg Sodium Chloride (Normal Saline) 1,000 mls @ 125 mls/hr IV ASDIRECTED [facility] Last Admin: 09/16/19 07:04 Dose: 125 mls/hr Influenza Virus Vaccine (Fluzone Quad [id number] Syringe) 60 mcg IM .ONCE ONE Stop: 09/17/19 10:01 Isosorbide Mononitrate (Imdur) 30 mg PO DAILY [facility] Last Admin: 09/16/19 09:24 Dose: 30 mg Ondansetron HCl (Zofran) 4 mg IV Q4H PRN PRN Reason: Nausea/Vomiting Oxycodone HCl (Oxycodone) 5 mg PO Q4H PRN PRN Reason: Pain (moderate 4-6) Pantoprazole Sodium (Protonix Iv) 40 mg IV Q12H [facility] Last Admin: 09/16/19 05:24 Dose: 40 mg Rosuvastatin Calcium (Crestor) 20 mg PO BEDTIME [facility] Last Admin: 09/15/19 21:09 Dose: 20 mg Sodium Chloride (Saline Flush) 10 ml FLUSH ASDIRECTED PRN PRN Reason: Keep Vein Open Trazodone HCl (Trazodone) 50 mg PO BEDTIME [facility] Last Admin: 09/15/19 21:11 Dose: 50 mg Discontinued Medications Bisacodyl (Dulcolax) 10 mg PO ONETIME ONE Stop: 09/15/19 16:01 Last Admin: 09/15/19 16:59 Dose: 10 mg Bisacodyl (Dulcolax) 10 mg PO ONETIME ONE Stop: 09/15/19 20:01 Last Admin: 09/15/19 21:10 Dose: 10 mg Fentanyl (Sublimaze) Confirm Administered Dose 100 mcg .ROUTE .STK-MED ONE Stop: 09/16/19 07:07 Sodium Chloride (Normal Saline) 1,000 mls @ 999 mls/hr IV ASDIRECTED [facility] Last Admin: 09/15/19 13:17 Dose: 999 mls/hr Sodium Chloride (Normal Saline) 80 mls @ 3.5 mls/sec IV ASDIRECTED [facility] Last Admin: 09/15/19 13:42 Dose: 3.5 mls/sec Iopamidol (Isovue-300 (61%)) 132 ml IV ASDIRECTED ONE Stop: 09/15/19 13:37 Last Admin: 09/15/19 13:42 Dose: 132 ml Midazolam HCl (Versed 1 Mg/Ml) Confirm Administered Dose 2 mg .ROUTE .STK-MED ONE Stop: 09/16/19 07:07 Polyethylene Glycol (Miralax) 238 gm PO ONETIME ONE Stop: 09/15/19 17:01 Last Admin: 09/15/19 17:46 Dose: 238 gm Propofol (Diprivan 20 Ml) Confirm Administered Dose 200 mg .ROUTE .STK-MED ONE Stop: 09/16/19 07:07 - Exam General: Reports: Alert, Oriented, Cooperative, No Acute Distress Lungs: Reports: Clear to Auscultation, Normal Respiratory Effort Cardiovascular: Reports: Regular Rate, Regular Rhythm, No Murmurs GI/Abdominal Exam: Soft, Non-Tender, No Organomegaly, No Distention *Q Meaningful Use (DIS) - VTE *Q VTE Pharmacological Contraindications *Q: Active Hemorrhage
--- NOTE | 2019-09-16 11:01 | PN ---
DATE OF SERVICE: 09/16/2019 SUBJECTIVE: Erasmo is n.p.o. and has finished a colon prep. He will be having a colonoscopy this morning. Case to follow. He continues to have some bloody stools. CT showed that there was an abrupt narrowing at the junction of proximal and middle third of the sigmoid colon, approximately 10 cm segment. It appeared to be stricture formation. Erasmo reports pain on the pain scale of 1 to 10 of 1/10. Denies pain, but states occasionally he will have a little bit of cramping. Denies any fever, chills, night sweats, or fatigue. REVIEW OF SYSTEMS: HEENT: No headache, dizziness, loss of coordination. NECK: Negative. HEART: No chest pain. Fast irregular heart beats. LUNGS: No cough. ABDOMEN: As above. GENITOURINARY: Negative. EXTREMITIES: No joint pain or swelling. SKIN: Negative for rash. EXTREMITIES: Without peripheral edema. PSYCHIATRIC: Mood and affect appropriate. Remainder of review of systems negative for any pertinent positives and negatives. PAST MEDICAL HISTORY: Allergic rhinitis. CARDIOVASCULAR HISTORY: Arrhythmia, coronary artery disease, hypercholesterolemia, hypertension. GASTROINTESTINAL HISTORY: Irritable bowel syndrome or inflammatory bowel disease. The patient is not sure. He states he has IBS, GERD. MUSCULOSKELETAL: History of gout. NEUROLOGICAL HISTORY: Dystonia of the cervical spine and degenerative joint disease. PSYCHIATRIC HISTORY: Anxiety. SKIN: Occasionally gets a rash in the axilla areas. PAST SURGICAL HISTORY: 1. Angiogram. 2. Several colonoscopies. 3. Shoulder surgery, rotator cuff repair x2 on left, rotator cuff repair x2 on right, biceps rupture repair. SOCIAL HISTORY: Smoking, never smoked. Caffeine, drinks 3 to 4 cups of coffee a day. Alcohol, drinks 2 drinks 4 times a week. Recreational drugs, no history. . Employed at [employer]. ALLERGIES: TO BEE VENOM. NO KNOWN MEDICAL ALLERGIES. OBJECTIVE: GENERAL: Erasmo Zimmerman is a pleasant 44-year-old male. VITAL SIGNS: Weight is 193. TPR 96.7, 60, 12, blood pressure 111/64. HEENT: Negative. NECK: Supple. HEART: Regular rate and rhythm. LUNGS: Clear. ABDOMEN: Flat, nondistended, minimally tender in the low abdominal quadrants bilaterally, left greater than right. EXTREMITIES: SCDs are on, and there is no peripheral edema. SKIN: Without rash. PSYCHIATRIC: Mood and affect appropriate. NEUROLOGIC: Cranial nerves 2 through 12 intact. ASSESSMENT: 1. Gastrointestinal bleed. 2. Sigmoid stricture on CT scan. 3. Coronary artery disease. 4. Endothelial disease. 5. History of gout. 6. Gastroesophageal reflux disease. 7. Anxiety. PLAN: To have colonoscopy today. Orders to be written post colonoscopy. We will evaluate p.r.n. or in a.m. Thank you for this consultation regarding Erasmo Zimmerman. Grace Brody PA-C /[id number]
[2019-09-17] MEDS ORDERED: FLU Vacc QS2019-20(6MOS+)/PF 60 MCG/0.5 ML SYRINGE IM ONE (10:00)
--- NOTE | 2019-09-24 13:08 | OR ---
DATE OF PROCEDURE: 09/16/2019 SURGEON: Rashad Davison MD PREOPERATIVE DIAGNOSIS: Rectal bleeding. POSTOPERATIVE DIAGNOSIS: Lower gastrointestinal bleeding likely related to excoriated hemorrhoids. OPERATIVE PROCEDURE: Flexible colonoscopy with: 1. Collection of stool for culture and sensitivity (69844). 2. Random colorectal biopsies to rule out microscopic colitis ([id number]). ANESTHESIA: IV sedation. INDICATION FOR PROCEDURE: This is a 44-year-old who was admitted overnight with lower gastrointestinal bleeding. CT scan was suggestive of an area of narrowing in the sigmoid colon. Plan is to proceed with a colonoscopy with biopsies and/or polypectomy as indicated. Potential risks including bleeding and perforation were discussed, and the patient wishes to proceed. DETAILS OF PROCEDURE: The patient was taken to the operating room and placed in a left lateral decubitus position. IV sedation was administered, after which the initial digital rectal exam was performed and was unremarkable. Colonoscope was then passed to the level of the rectum. Retroflexion revealed some excoriated hemorrhoids. One of these was quite distended. None of these had the clot or bleeding, but certainly would be likely causes of bleeding over time. Scope was then eventually passed to the level of the cecum. There was a small amount of scattered stool which was collected for C and S. The examination otherwise was entirely normal. There was certainly no areas of narrowing in the sigmoid colon, and otherwise there were no mucosal abnormalities above the excoriated hemorrhoids to the level of the ileocecal valve. Specifically, there was no diverticula, no areas of colitis, no polyps or other signs of neoplasia, and again, no sign of any narrowing of the colonic lumen at any point. Scope was then withdrawn and the above findings reconfirmed. As one withdrew the scope, multiple random biopsies were obtained to rule out microscopic colitis and this procedure was then concluded. The patient was taken to the recovery room in satisfactory condition. At this point, we will have the patient start a regular diet. Situation was discussed with Dr. Lucas, and the plan will be to have the patient follow up with Surgery at [facility] p.r.n. for significant rectal bleeding, at which time, we will probably place hemorrhoid bands. Otherwise, if he is having hemorrhoid problems, Preparation-H with hydrocortisone could be used p.r.n. Rashad Davison MD /[id number]
== END 2019-09-16 10:05 | disposition home or self-care (01) | DRG 395 ==
LOC: JP.ED 11:35 → JP.ICU 13:51 → JP.MS 09-16 09:00
PROVIDERS: ADMIT Hospitalist; ATTEND Hospitalist
PROC: 0DBE8ZX Excision of Large Intestine, Via Natural or Artificial Opening Endoscopic, Diagnostic (ICD-10-PCS; principal; 2019-09-16)
DX: K64.8 Other hemorrhoids (principal); I25.10 Atherosclerotic heart disease of native coronary artery without angina pectoris; E78.00 Pure hypercholesterolemia, unspecified; I10 Essential (primary) hypertension; K21.9 Gastro-esophageal reflux disease without esophagitis; M10.9 Gout, unspecified; F41.9 Anxiety disorder, unspecified; Z91.030 Bee allergy status; Z79.82 Long term (current) use of aspirin; Z79.899 Other long term (current) drug therapy
CPT/HCPCS: 36415; 74177; 74177-26; 80048; 80053; 81001; 82272; 85018; 85025; 85730; 87046; 87899; 88305; 89055; 96360; 96361; 99285-25; A9270-GY; C9113; J2250; J2704; J3010; J7030; J7050; Q9967

== ENCOUNTER 2020-05-16 14:18 | Emergency (ER) | payer OTHER ==
[2020-05-16 14:30] VITALS: BP 138/87; PULSE 86
--- NOTE | 2020-05-16 14:40 | EDM.PDOC ---
ED HPI GENERAL MEDICAL PROBLEM - General Chief Complaint: Lower Extremity Injury/Pain Stated Complaint: LEFT FOOT PAIN BROKEN? Time Seen by Provider: 05/16/20 14:27 Source of Information: Reports: Patient History Limitations: Reports: No Limitations - History of Present Illness INITIAL COMMENTS - FREE TEXT/NARRATIVE: Patient presents for evaluation of continued left foot pain after injuring the foot 1 week ago. It was raining and he was running into a pole barn and when crossing the threshold, which was still under construction, he struck the top of his left foot against the 2 x 8 lumbar brace across the threshold. It was very uncomfortable at first and his foot got quite black and blue over the next few days but he was able to bear weight. The black and blue changes have gradually resolved but he has a noticeable lump on the dorsum of the foot behind the first and second toes. Today, at his 's urging, he came here to see whether or not any part of the foot is broken? There were no other injuries sustained in the same incident. Onset Date: 05/09/20 Duration: Week(s): (One), Constant Location: Reports: Lower Extremity, Left Quality: Reports: Ache, Dull Severity: Moderate Improves with: Reports: None Worsens with: Reports: Movement Context: Reports: Trauma Associated Symptoms: Reports: No Other Symptoms - Related Data Allergies Allergy/AdvReac Type Severity Reaction Status Date / Time bee venom protein (honey bee) Allergy Severe Anaphylactic Verified 05/16/20 14:30 Shock Home Meds: Home Meds traZODone 50 mg PO BEDTIME 12/01/13 [History] carisoprodoL [Soma] 350 mg PO QID 08/19/14 [History] Baclofen 10 mg PO Q12H 09/12/15 [History] diazePAM [Valium] 5 mg PO BEDTIME 01/18/16 [History] Aspirin [Halfprin] 81 mg PO DAILY 07/04/19 [History] Diltiazem [Dilacor XR] 240 mg PO BEDTIME 07/04/19 [History] EPINEPHrine [Epipen] 0.3 mg IM ASDIRECTED PRN 07/04/19 [History] Indomethacin [Indocin] 50 mg PO ASDIRECTED PRN 07/04/19 [History] Isosorbide Mononitrate [Isosorbide Mononitrate ER] 30 mg PO DAILY 07/04/19 [History] Nitroglycerin [Nitrostat] 0.4 mg SL ASDIRECTED PRN 07/04/19 [History] Rosuvastatin [Crestor] 20 mg PO BEDTIME 09/15/19 [History] Losartan [Cozaar] 50 mg PO DAILY 05/16/20 [History] Tamsulosin [Flomax] 1 tab PO BEDTIME 05/16/20 [History] Past Medical History HEENT History: Reports: Allergic Rhinitis Cardiovascular History: Reports: Arrhythmia, CAD, High Cholesterol, Hypertension Gastrointestinal History: Reports: GERD, Inflammatory Bowel Disease Musculoskeletal History: Reports: Fracture, Gout Other Musculoskeletal History: Distonia Neurological History: Reports: Other (See Below) 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 Psychiatric History: Reports: Anxiety Dermatologic History: Reports: None, Other (See Below) Other Dermatologic History: rash on underarms - Infectious Disease History Infectious Disease History: Reports: Chicken Pox - Past Surgical History Head Surgeries/Procedures: Reports: None Cardiovascular Surgical History: Reports: Other (See Below) Other Cardiovascular Surgeries/Procedures: angiogram Respiratory Surgical History: Reports: None GI Surgical History: Reports: Colonoscopy Musculoskeletal Surgical History: Reports: Shoulder Surgery, Other (See Below) Other Musculoskeletal Surgeries/Procedures:: rotator x 2 on left and x2 on right. bicep rupture repair. Dermatological Surgical History: Reports: Skin Biopsy Social & Family History - Caffeine Use Caffeine Use: Reports: Coffee Review of Systems - Review of Systems Review Of Systems: Comprehensive ROS is negative, except as noted in HPI. ED EXAM, GENERAL - Physical Exam Exam: See Below Exam Limited By: No Limitations General Appearance: Alert, No Apparent Distress Respiratory/Chest: No Respiratory Distress Cardiovascular: Regular Rate, Rhythm Extremities: Other (There is a roughly 3 cm hematoma over the midportion of metatarsals 1 and 2. It feels mobile. There is pain across the distal second third and fourth metatarsals at the MTP joints. There is still a little bit of residual ecchymosis present in the toes.) Course - Vital Signs Last Recorded V/S: Last Vital Signs Temp 36.9 C 05/16/20 14:37 Pulse 86 05/16/20 14:37 Resp 16 05/16/20 14:37 BP 138/87 05/16/20 14:37 Pulse Ox 99 05/16/20 14:37 - Orders/Labs/Meds Orders: Active Orders 24 hr Category Date Time Status Foot Comp Min 3V Lt [CR] Stat Exams 05/16/20 14:31 Ordered - Re-Assessments/Exams Free Text/Narrative Re-Assessment/Exam: 05/16/20 14:42 X-ray of left foot will be ordered. Personal review of x-rays shows no evidence of fracture. I recommend cold packs 20 minutes off and on to painful and/or swollen areas. Ibuprofen or naproxen as needed for discomfort. The swelling will still take some time to go away. Departure - Departure Time of Disposition: 14:48 Disposition: Home, Self-Care 01 Clinical Impression: Contusion of left foot Qualifiers: Encounter type: initial encounter Qualified Code(s): S90.32XA - Contusion of left foot, initial encounter - Discharge Information Instructions: Contusion, Live-ud-Tdap Referrals: Dioni Ortega MD [Primary Care Provider] - Forms: ED Department Discharge Additional Instructions: Use protective footwear to avoid reinjury of the affected area. Ice/cold packs to painful and swollen areas 20 minutes off and on is reasonable. Elevation of the foot when possible will help. The swelling may take a couple of weeks to completely resolve. Recheck with primary care if not improved after several. Sepsis Event Note (ED) - Focused Exam Vital Signs: Vital Signs Temp Pulse Resp BP Pulse Ox 05/16/20 14:37 36.9 C 86 16 138/87 99 05/16/20 14:29 36.9 C 86 16 138/87 99 - My Orders Last 24 Hours: My Active Orders 05/16/20 14:31 Foot Comp Min 3V Lt [CR] Stat - Assessment/Plan Last 24 Hours: My Active Orders 05/16/20 14:31 Foot Comp Min 3V Lt [CR] Stat
--- NOTE | 2020-05-17 15:18 | CR ---
Foot Comp Min 3V Lt CLINICAL HISTORY: Injury FINDINGS: There is no acute fracture or dislocation within the foot. No destructive changes are present. IMPRESSION: No acute bony process.
== END 2020-05-16 15:11 | disposition home or self-care (01) ==
LOC: JP.ED 14:18
DX: S90.32XA Contusion of left foot, initial encounter (principal); I10 Essential (primary) hypertension; I25.10 Atherosclerotic heart disease of native coronary artery without angina pectoris; F41.9 Anxiety disorder, unspecified; M10.9 Gout, unspecified; Z91.030 Bee allergy status; Z79.899 Other long term (current) drug therapy; W22.8XXA Striking against or struck by other objects, initial encounter
CPT/HCPCS: 73630-26-LT; 73630-LT; 99283-25